=== PATIENT | female | born 1930 | race Caucasian/White ===

== ENCOUNTER 2016-11-13 19:02 | Observation (INO) | payer MEDICARE, MEDICAID ==
[~2016-11-13] VITALS: Ht 160 cm; Wt 119.6 kg
--- NOTE | ~2016-11-13 | ER ---
PATIENT'S NAME: MOISE JONES [facility] AGE: 86 Y [address] ROOM: [place] [address] LOCATION: GPCU ADMIT DATE: 11/13/2016 ER/Outpatient Report DISCHARGE DATE: FAMILY PHYSICIAN: JARETH HEBERT MD ATTENDING PHYSICIAN: JARETH HBEERT Time of Arrival: 1909 hours. Time Seen: 1925 hours. CHIEF COMPLAINT: This is an 86-year-old female with a history of atrial fib, hypothyroidism, and arthritis in with a complaint of chest pain and feeling lightheaded. HISTORY OF PRESENT ILLNESS: She reports that she had several episodes of aching substernal chest pain associated with lightheadedness and feeling that she was going to faint. She had three distinct episodes today. She states that they were resolved with sublingual nitroglycerin, but then the symptoms came back. She is asymptomatic at the time of my evaluation. PAST MEDICAL HISTORY: Significant for atrial fibrillation, hypothyroidism, rheumatoid arthritis, obesity. CURRENT MEDICATIONS: See list. REVIEW OF SYSTEMS: Otherwise, negative. SOCIAL HISTORY: She is a nonsmoker. PHYSICAL EXAMINATION: GENERAL: An alert and obese female, in no acute distress. VITAL SIGNS: Stable. SKIN: Warm and dry. Color was pale. HEENT: Head, ears, eyes, nose, and throat were normal. NECK: Supple. HEART: Had a regular rate and rhythm with grade 2/6 holosystolic murmur. LUNGS: Clear. Breath sounds are equal. ABDOMEN: Soft and nontender. EXTREMITIES: Normal. NEUROLOGIC: Normal. PATIENT'S NAME: MOISE JONES [facility] AGE: 86 Y [address] ROOM: [place] [address] LOCATION: GPCU ADMIT DATE: 11/13/2016 ER/Outpatient Report DISCHARGE DATE: FAMILY PHYSICIAN: JARETH HEBERT MD ATTENDING PHYSICIAN: JARETH HEBERT LABORATORY DATA AND X-RAYS: EKG revealed an electronic pacer with resultant wide complexes. CBC, comprehensive metabolic profile, and cardiac enzymes were negative. Chest x- ray was negative by my interpretation. The radiologist's interpretation is pending. EMERGENCY DEPARTMENT COURSE: I discussed the case with Dr. Hebert who agreed to admit the patient and title curative specialist, Dr. Redd, was also consulted. ASSESSMENT: Chest pain. PLAN: Admit for serial enzymes and Cardiology consultation. EDWIN BOWDEN MD JTALON/modl /[id number] d: 11/14/16 0515 t: 11/15/16 0444, OUTPATIENT REPORT
--- NOTE | ~2016-11-13 | HP ---
PATIENT'S NAME: MOISE JONES [facility] AGE: 86 Y [address] ROOM: [address] [place] [address] LOCATION: GPCU ADMIT DATE: 11/13/2016 History & Physical DISCHARGE DATE: FAMILY PHYSICIAN: JARETH WARD MD ATTENDING PHYSICIAN: JARETH WARD DATE OF SERVICE: CHIEF COMPLAINT: Chest pain. HISTORY OF PRESENT ILLNESS: The patient is an 86-year-old single white female, who has a history of atrial fibrillation, hypothyroidism, and arthritis, who had chest pain and lightheadedness at home prior to coming to the hospital. She had taken some nitroglycerin for substernal chest pain with associated lightheadedness and feeling like she was going to faint. She did this on 3 different episodes. Because her symptoms came back, she came in for evaluation. She is a primary care patient of the training and development assistant here, Dr. Redd from [facility]. I am the patient's primary care physician and the ER doctor asked me to admit the patient, and I will obtain consultation, and care will be directed by Dr. Redd. When I see the patient at 0630 hours on 11/14/2016, overnight, her chest pain has been resolved. She has had no lightheadedness, no syncope. Her rhythm on the monitor shows a paced rhythm. Her EKG this morning shows a paced rhythm without any acute changes, and her enzymes are negative for evolutionary SC. She complains that she is thirsty. She has been n.p.o. since midnight because we wanted to decide if we would do stress testing today. Review of her workup shows CBC and chem panel, cardiac enzymes as mentioned, negative. Chest x-ray on my interpretation shows cardiomegaly, but no obvious infiltrate. PAST MEDICAL HISTORY: MEDICATIONS: She is on, 1. Xanax 0.25 as needed. 2. Lasix 20 mg a day. 3. Ferrous sulfate 325 mg a day. 4. Synthroid 0.1 mg a day. 5. Lisinopril 2.5 mg a day. 6. Niacin 500 mg per day. 7. Nitroglycerin sublingual 0.4 mg as needed. 8. Prilosec 20 mg a day. PATIENT'S NAME: ROBERT, [facility] AGE: 86 Y [address] ROOM: [place] [address] LOCATION: GPCU ADMIT DATE: 11/13/2016 History & Physical DISCHARGE DATE: FAMILY PHYSICIAN: JARETH WARD MD ATTENDING PHYSICIAN: JARETH WARD 9. Pradaxa 150 mg twice a day. 10. Tramadol 50 mg as needed. 11. Maxzide 1 daily. 12. Vitamin E 400 units a day. 13. Zinc. 14. Sotalol 80 mg b.i.d. She is also on some supplements, please see nurse's notes. ALLERGIES: NO KNOWN DRUG ALLERGIES. SOCIAL HISTORY: Does not smoke at this time. FAMILY HISTORY: Noncontributory. PAST SURGICAL HISTORY: See nurse's notes or old records. REVIEW OF SYSTEMS: HEENT: She has had no recent change in vision, no earache, no sore throat. ENDOCRINE: She has not been diabetic in the past. She has hypothyroid replacement. LUNGS: No history of asthma. HEART: As mentioned. GI: No recent change in bowel habits. No reflux. No dysphagia. : No dysuria or frequency. EXTREMITIES: No new edema. NEUROLOGIC: No history of headache, seizure, or syncope. MENTAL STATUS: Anxiety has been chronic. No acute depression. SKIN: No recent rashes. PHYSICAL EXAMINATION: GENERAL: Elderly white female, who is hard of hearing, lying in bed. She is oriented to person, place, and time. She is complaining of dry mouth. HEENT: Shows glasses present. Pupils react to light. TMs not visualized. Posterior pharynx is clear. HEART: Shows a rate of about 80. I do not hear a murmur. LUNGS: Clear anteriorly. I did not listen posteriorly. BREASTS: Exam not done. ABDOMEN: Soft, obese. No point tenderness. PELVIC AND RECTAL: Exam not done. EXTREMITIES: Show trace of edema in her ankles. PATIENT'S NAME: MOISE JONES [facility] AGE: 86 Y [address] ROOM: [place] [address] LOCATION: GPCU ADMIT DATE: 11/13/2016 History & Physical DISCHARGE DATE: FAMILY PHYSICIAN: JARETH WARD MD ATTENDING PHYSICIAN: JARETH WARD NEUROLOGIC: Shows cranial nerves intact. No lateralizing signs. MENTAL STATUS: Normal cognition. ASSESSMENT: 1. Anterior chest pain/substernal, resolving after nitroglycerin with associated lightheadedness. 2. Atrial fibrillation. 3. Hypothyroid, replacement. 4. History of rheumatoid arthritis. 5. Morbid exogenous obesity. 6. Chronic anxiety. 7. Hypertension, essential. 8. Gastroesophageal reflux disease. 9. History of atrial fibrillation. 10. Status post pacemaker. PLAN: As mentioned, we will give her ice chips now, await Cardiac consultation, keep her n.p.o. otherwise, and the training and development assistant will direct care at this point. I will follow along daily for general medical illness. JARETH WARD MD PROJECT MANAGEMENT/modl /[id number] D: [id number] T: [id number] HISTORY & PHYSICAL
--- NOTE | ~2016-11-13 | CON ---
PATIENT'S NAME: ROBERT [facility] AGE: 86 Y [address] ROOM: [place] [address] LOCATION: GPCU ADMIT DATE: 11/13/2016 Consultation DISCHARGE DATE: 11/14/2016 FAMILY PHYSICIAN: Ac Hebert MD ATTENDING PHYSICIAN: Ac Hebert DATE OF CONSULTATION: 11/14/2016 REFERRING PHYSICIAN: Ricky Redd MD REASON FOR CARDIOLOGY CONSULT: Chest pain and presyncope. HISTORY OF PRESENT ILLNESS: This is an 86-year-old female who was having complaints of feeling poorly over the last 3 to 4 days. She complains of heavy pressure in her back and her shoulders. She also complains of excessive heartburn and chest pressure that happens on and off. She also has complaints of dizziness and presyncope as well as a headache. She denies any nausea or vomiting as well as any diarrhea or constipation. Overall, she complains of shortness of breath, congestion, and "feel like I have a cold." As of this consult, she denies any chest pain or pressure. The patient has a previous history of paroxysmal atrial fibrillation and has had difficulties tolerating sotalol and most recently was on amiodarone, but it made her feel congested. PAST MEDICAL HISTORY: 1. Paroxysmal atrial fibrillation and atrial flutter. 2. Chronic diastolic congestive heart failure. 3. Coronary artery disease with a history of myocardial infarction. 4. 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 5. Dyslipidemia. 6. Peripheral vascular disease. 7. Hypertension. 8. Chronic anticoagulation with Pradaxa. 9. History of DVT. 10. GERD. 11. Hypothyroidism. PAST SURGICAL HISTORY: 1. Coronary artery stenting to the OM as well as the LAD in 2012. 2. Direct current cardioversion in 2015 as well as early 2016. 3. Tonsillectomy. 4. Adenoidectomy. 5. Hernia repair. 6. Back surgery. PATIENT'S NAME: ROBERT [facility] AGE: 86 Y [address] ROOM: [place] [address] LOCATION: GPCU ADMIT DATE: 11/13/2016 Consultation DISCHARGE DATE: 11/14/2016 FAMILY PHYSICIAN: Ac Hebert MD ATTENDING PHYSICIAN: Ac Hebert 7. Ankle surgery. 8. Right total knee replacement. FAMILY HISTORY: The patient's mother had a history of embolus at the age of 78, and her father due to a colon obstruction at the age of 68. She has two sons with history of heart disease. SOCIAL HISTORY: The patient denies ever using tobacco. She also denies alcohol or illicit drug use. CURRENT MEDICATIONS: 1. Ferrous sulfate 325 mg p.o. daily. 2. Fish oil 1000 mg p.o. daily. 3. Lasix 20 mg p.o. daily. 4. Levothyroxine 100 mcg p.o. daily. 5. Maxzide 37.5/25 mg 1 tablet p.o. daily. 6. Niacin 500 mg p.o. daily in the evening. 7. Os-Rojas 500 mg p.o. daily. 8. Pradaxa 150 mg p.o. twice daily. 9. Prinivil 2.5 mg p.o. daily. 10. Protonix 40 mg p.o. daily. 11. Ultram 50 mg p.o. twice daily. 12. Vitamin C 500 mg p.o. daily. 13. Vitamin E 400 units p.o. daily. 14. Xanax 0.25 mg p.o. daily in the evening. 15. Zincate 220 mg p.o. daily. MEDICATION ALLERGIES: 1. Statins causing joint pain. 2. Codeine causing nausea. REVIEW OF SYSTEMS: Pertinent positive review of systems listed in the HPI. All other review of systems evaluated and negative. DIAGNOSTICS: CMS evaluation shows sodium of 141, potassium 3.8, BUN of 10, creatinine 0.9, glucose of 96, and magnesium of 1.8. CBC evaluation shows a white blood cell count of 6.3, hemoglobin of 14.5, hematocrit 44, and platelets of 184. Cardiac enzyme trend shows a CPK of 54, then 50, and then 44; CK-MB is 1.7 x 2 values and then 1.4; and troponin I trend is less than 0.04 x3 values. PHYSICAL EXAMINATION: PATIENT'S NAME: MOISE JONES [facility] AGE: 86 Y [address] ROOM: [id number] [place] [id number] LOCATION: GPCU ADMIT DATE: 11/13/2016 Consultation DISCHARGE DATE: 11/14/2016 FAMILY PHYSICIAN: Ac Hebert MD ATTENDING PHYSICIAN: Ac Hebert VITAL SIGNS: Temperature 97.6, pulse 70, respirations 14, blood pressure 110/53, O2 saturation 93% on room air. The patient weighs 119.6 kg. SKIN: [place], warm, and dry. EYES: Sclerae clear. No xanthelasmas. ENT: Oral mucosa is pink and moist. No jugular venous distention or carotid bruits. CHEST: Respirations are even and unlabored. LUNGS: Clear to auscultation. HEART: Irregular rate and rhythm. Normal S1, S2. Does have the presence of a 2/6 systolic murmur and she is intermittently ventricular paced. ABDOMEN: Soft and nontender but obese. MUSCULOSKELETAL: Equal muscle strength in upper and lower extremities bilaterally against resistance. EXTREMITIES: Peripheral pulses palpable. No clubbing or cyanosis noted. Does have trace lower extremity edema present. PSYCH: Alert oriented. Mood and affect are appropriate. IMPRESSION AND PLAN: Per Dr. Redd. 1. Atypical chest pain. Currently with negative cardiac enzymes. We will check an echocardiogram to fully evaluate ejection fraction as well as look for wall motion or valvular abnormalities. We will also proceed with a myocardial perfusion imaging scan. Once again, at this time, she is currently pain-free, but of note she did have to use nitroglycerin at home for her atypical chest pressure. 2. Atrial fibrillation. She was recently switched from sotalol to amiodarone, and once again that did make her congested, so we will accept the fact that she will be in chronic atrial fibrillation. 3. Long-term anticoagulation with Pradaxa. 4. Chronic diastolic congestive heart failure. Currently appears euvolemic. 5. Hypertension. 6. Dyslipidemia. 7. Hypomagnesemia. We will correct with magnesium oxide 400 mg p.o. twice daily. We will continue to monitor, evaluate, and treat as appropriate. Thank you Dr. Hebert for this consult. Thank you for allowing [facility] to interact in the care of this patient. BREANN DE LOS SANTOS APRN FOR MD BEA SOLIS/norma PATIENT'S NAME: MOISE JONES [facility] AGE: 86 Y [address] ROOM: [place] [address] LOCATION: GPCU ADMIT DATE: 11/13/2016 Consultation DISCHARGE DATE: 11/14/2016 FAMILY PHYSICIAN: Ac Hebert MD ATTENDING PHYSICIAN: Ac Hebert /[id number] d: 11/14/16 2216 t: 11/17/16 0944, CONSULTATION REPORT
--- NOTE | ~2016-11-13 | ESTC ---
Cardiac Perfusion Imaging Demographics Patient Name ROBERT Hernandez Gender Female Patient Number [id number] Race Visit Number [id number] [place] [id number] Room Number G6304 Accession Number [id number] Height 63 inches Date of 1930 Weight 263.7 pounds Erica PADGETT Interpreting Marisol Garza Date of study 11/14/2016 Physician MD Supervising /MLP Tramaine MEDINA Technologist aMura Maldonado MD Ordering Physician Tramaine Langley A orthodontic technician assistant Stress ECG Reading Harleen Ye APRN Nurse Misael Mcfarlane Physician The procedure was explained in detail to the patient. Risks, complications and alternative treatments were reviewed. Written consent was obtained. Medications Reviewed with Patient prior to Procedure. Procedure Admit Source:Transfer acute care facility. Procedure Type: Nuclear Stress Test:Pharmacological, Lexiscan, Cardiolite Stress Test Procedure Start time: 11/14/2016 10:30 Indications: Chest pain. Risk Factors The patient risk factors include:prior PCI on 05/29/2014;obesity, physical activity, hypercholesterolemia, treated hypertension, family history of premature CAD, chronic lung disease, dyslipidemia, prior heart failure and prior NE . Conclusions Summary Perfusion Images: The overall quality of the study is good. Left ventricular cavity is noted to be normal on the stress and normal on the rest images. There is no evidence of abnormal lung activity. The right ventricle is not visualized an cannot be assessed. Impression ECG portion of the lexiscan stress test is clinically nondiagnostic for ischemia by diagnostic criteria, due to paced ventricular beats. Myocardial perfusion imaging is mildly abnormal. The images reveal a small sized, predominantly fixed defect in the apical wall and distal anterior wall consistent with infarct . Overall left ventricular systolic function was abnormal. Calculated LVEF is 65% and TID ratio is 1.24. This is a low risk stress test. Stress Protocols Resting ECG VPaced Pre-stress physical exam: Patient assessed by Juliet VILLALBA prior to testing. Predicted HR: 132 bpm HR response: Appropriate BP response: Appropriate Reason for termination:Infusion complete ECG Findings Indeterminate ECG due to baseline abnormalities.orre Arrhythmias No rhythm abnormality. Symptoms No symptoms with Lexiscan infusion. Complications Procedure complication: None. Stress Interpretation The electrocardiographic portion of the stress test was nondiagnostic for ischemia due to underlying paced ventricular beats. Appropriate hemodynamic response to exercise. Imaging Results Applied corrections - Motion correction applied High risk findings Summed scores - LV dilatation (TID) : 1.24 - Summed stress score: 17 - Summed rest score: 6 - Summed difference score: 11 Stress ejection Ejection fraction:65 % EDV :116 ml ESV :41 ml Stroke volume :75 ml LV mass :146 gr Imaging Protocols Rest Stress Isotope:Tc99m Sestamibi IV Isotope: Tc99m Sestamibi IV Isotope dose:15.3 mCi Isotope dose:48.3 mCi Date:11/14/2016 08:42 Date:11/14/2016 11:03 Technique: SPECT Technique: Gated Supine SPECT Supine IV remains in place after procedure. Procedure Medications - Regadenoson (Lexiscan) 0.4 mg IV over 10-15 sec. I.V. 0.4 mg. Medical History Admission Data Admission date: 11/13/2016 Admission Time: 22:14 Hospital Status: Inpatient. Signatures dtt: CARLYLE FAUSTIN dtd: 11/14/16 1030 Physician Self Edit
[~2016-11-13 19:02] MED LIST: ARTIFICIAL TEAR15 ML OPHTH; ASCORBIC ACID500 MG PO; BETA CAROT25000 UNIT PO; BETAPACE (GENER80 MG PO; BILBERRY500 MG PO; CALCIUM CARBON600 MG PO; COLACE100 MG PO; COQ-10100 MG PO; FISH OIL 1,4001 EACH PO; IRON325 MG PO; LASIX20 MG PO; LEVOTHROID (S100 MCG PO; LUTEIN20 MG PO; NIACIN500 M1 PO; NITROSTAT 0.40.4 MG SL; PRADAXA150 MG PO; PRILOSEC20 MG PO; SINUS CONGESTI PO; TOPROL XL25 MG PO; TRIAMTERENE-HC1 EAC1 PO; ULTRAM50 MG PO; VITAMIN E400 UNI2 PO; XANAX0.25 MG PO; ZESTRIL2.5 MG PO; ZINC50 M1 PO
[2016-11-13 20:04] LABS: BASOPHIL % 0.3 %; EOSINOPHIL # 0.2 K/uL (0.0-0.5); EOSINOPHIL % 2.5 %; HEMOGLOBIN 14.5 g/dL (10.0-15.0); IMMATURE GRANULOCYTE % 0.2 %; LYMPHOCYTE # 1.7 K/uL (0.8-4.0); LYMPHOCYTE % 26.2 %; MCH 32.1 pg (27.0-34.0); MCV 97.3 fl (83.0-98.0); MONOCYTE # 0.6 K/uL (0.0-1.0); MONOCYTE % 8.7 %; MPV 10.5 fl (9.4-12.4); NEUTROPHIL # (ANC) 3.9 K/uL (1.8-7.8); NEUTROPHIL % 62.1 %; NRBC % 0 /100WBC (0-0.00); PLATELET COUNT 184 K/uL (150-450); RBC 4.52 M/uL (3.00-5.00); RDW-CV 12.6 % (11.9-14.6); WBC 6.3 K/uL (4.0-11.0)
[2016-11-13 20:17] LABS: INR - (THERAPEUTIC) 1.15 (0.92-1.07); PROTIME 12.1 SECONDS (9.8-11.4); PTT 43 SECONDS (25-32)
[2016-11-13 20:25] LABS: ALBUMIN 3.3 gm/dL (3.5-5.0); ALK PHOS 97 IU/L (33-138); ALT 19 IU/L (12-78); ANION GAP 11.8 (10.0-19.0); AST 16 IU/L (10-40); BLOOD UREA NITROGEN 10 mg/dL (6-24); CALCIUM 9.9 mg/dL (8.5-10.5); CHLORIDE 107 mMol/L (96-110); CO2 26 mMol/L (22-32); CPK 54 IU/L (21-215); CREATININE 0.9 mg/dL (0.5-1.1); ESTIMATED GFR (MDRD EQUATION) 59; MAGNESIUM 1.8 mg/dL (1.8-2.6); POTASSIUM 3.8 mMol/L (3.7-5.1); SODIUM 141 mMol/L (135-145); TOTAL BILIRUBIN 0.9 mg/dL (0.0-1.5); TOTAL PROTEIN 6.5 g/dL (6.0-8.4)
[2016-11-13 22:22] LABS: CPK 50 IU/L (21-215)
--- NOTE | 2016-11-14 02:46 | NUR ---
PT ADMITTED FROM HOME AFTER HAVING ABOUT 3 EPISODES OF CHEST PAIN. SHE HAD TAKEN 3 NITRO WITH SOME RELIEF BUT THE PAIN RETURNED. SHE HAS BEEN HAVING INDIGESTION X3 DAYS. 1ST SET OF ENZYMES WERE NORMAL. HER CBC AND CMS WERE NORMAL EXCEPT A LOW ALBUMIN. PT STATES SHE HAS ALSO BEEN FEELING DIZZY ALL DAY. DAUGHTER AND GRANDDAUGHTER HERE WITH PATIENT BUT THEY WENT TO GET SOME DINNER WHEN PT BROUGHT UP TO FLOOR.
[2016-11-14 06:30] LABS: CPK 44 IU/L (21-215)
--- NOTE | 2016-11-14 07:02 | NUR ---
Significant Event: SEE ADMISSION NOTE. PT SLEEPING OFF AND ON. ALERT BUT JUST SEMIFORGETFUL. UP WITH STANDBY ASSIST AND THE WALKER TO THE BR. NO C/O DIZZINESS. STILL HAVE A LITTLE BIT OF CHEST PAIN. DR. WARD CALLED FOR ORDERS. FAMILY HERE FOR A SHORT TIME TO VISIT. Follow up:
[2016-11-14] MEDS ORDERED: ALDACTONE25 MG PO (14:31)
[2016-11-14] MEDS ORDERED: CORDARONE,PACE200 MG PO (14:31)
--- NOTE | 2016-11-14 15:23 | NUR ---
Stopped by RUDDY Lopez who tells me that Zelda is going to be able to go home today, but she isn't able to find a ride to come and pick her up so they are needing assistance in finding her transportation. I stopped into [facility], introduced self and CM role. Let her know that I had heard she was going to be able to go home today, but couldn't find friends or family to come and get her. She stated that this was correct. In talking with her, she tells me that she has Medicare AB as well as Medicaid [employer]. I offered to try to find her a ride through [employer] to get her home today. She was fine with this. We talked a little bit more and she tells me that she is seen by for a PCP. She gets her medications filled at the local [facility] in [place] and they deliver them straight to her door. She does her own medications at home and will continue to do so when she is dismissed. RUDDY Lopez worked with cardiology and to get [facility] orders complete. I phoned [employer], talked with Sabiha, she states that [employer] will be able to pickers material handlers Zelda at 1630 today. The drivers name is Rigo, phone number for his director if there is any issues is [phone] with getting her picked up. Rigo was informed he needed to call the [employer] [facility] when they were downstairs ready to pick her up. Sabiha states that he is picking up another client at D[facility] so he will be here about 1630 or shortly after. Gave all of this information to her RN Jessica and also updated Zelda to the above. She was in agreement with the plan to go back home today via [employer]. CM to continue to follow and assist. Plan home today.
--- NOTE | 2016-11-14 17:05 | NUR ---
Significant event: A&Ox3. Up SB with walker. Stress test today negative, denies chest pain. Dismissed to home at 1700 via [employer]. Educated patient on updated home medication list and follow up appointments.
== END 2016-11-14 17:00 | disposition disaster alternative care site (69) ==
LOC: GMED 19:02 → GPCU 22:14
PROVIDERS: Emergency Medicine; ADMIT Family Medicine
DX: R07.89 Other chest pain (principal); Z79.899 Other long term (current) drug therapy; E03.9 Hypothyroidism, unspecified; M19.90 Unspecified osteoarthritis, unspecified site; M06.9 Rheumatoid arthritis, unspecified; E66.01 Morbid (severe) obesity due to excess calories; F41.9 Anxiety disorder, unspecified; K21.9 Gastro-esophageal reflux disease without esophagitis; I48.0 Paroxysmal atrial fibrillation; I48.92 Unspecified atrial flutter; I11.0 Hypertensive heart disease with heart failure; I50.32 Chronic diastolic (congestive) heart failure; I25.10 Atherosclerotic heart disease of native coronary artery without angina pectoris; I25.2 Old myocardial infarction; E78.5 Hyperlipidemia, unspecified; I73.9 Peripheral vascular disease, unspecified; Z98.890 Other specified postprocedural states; Z95.0 Presence of cardiac pacemaker; Z96.651 Presence of right artificial knee joint; Z88.8 Allergy status to other drugs, medicaments and biological substances; Z88.5 Allergy status to narcotic agent
CPT/HCPCS: A9500; G0378; J2785; J7030